=== PATIENT | female | born 1960 | race American Indian/Alaskan Native ===

== ENCOUNTER 2017-08-28 17:51 | Emergency (ER) | payer MEDICAID ==
[2017-08-28] MEDS ORDERED: MOTRIN PO ONE (22:08)
[2017-08-28] MEDS ORDERED: DELTASONE PO ONE (22:08)
[2017-08-28] MEDS ORDERED: ROBITUSSIN PO ONE (22:11)
--- NOTE | 2017-08-28 22:12 | Emergency Department Report ---
Minor Respiratory - HPI Chief Complaint: Upper Respiratory Infection Stated Complaint: FLU LIKE SYMPTOMS Time Seen by Provider: 08/28/17 21:46 Duration: 3 Days Severity: mild Minor Respiratory: Yes Able to Tolerate Fluids, Yes Cough, Yes Sick Contacts ( friend's child), No Rhinorrhea, No Sore Throat, No Ear Pain, No Hemoptysis, No Chest Pain, No Shortness of Breath, No Fever Other History: Patient is a 57-year-old female presents to the ED complaining of fever, yellow productive cough, body aches 3 days. Patient states on Thursday she was a child of a friend who is sick. Patient states she started to feel symptoms about Thursday afternoon. She denies nausea/vomiting/abdominal pain /chest pain. ED Review of Systems ROS: Stated complaint: FLU LIKE SYMPTOMS Other details as noted in HPI Constitutional: denies: chills, fever Eyes: denies: eye pain, eye discharge, vision change ENT: denies: ear pain, throat pain, dental pain, congestion Respiratory: cough. denies: shortness of breath, wheezing Cardiovascular: denies: chest pain, palpitations Endocrine: no symptoms reported Gastrointestinal: denies: abdominal pain, nausea, diarrhea Genitourinary: denies: urgency, dysuria, discharge Musculoskeletal: denies: back pain, joint swelling, arthralgia Skin: denies: rash, lesions Neurological: denies: headache, weakness, paresthesias Psychiatric: denies: anxiety, depression Hematological/Lymphatic: denies: easy bleeding, easy bruising ED Past Medical Hx - Past Medical History Previous Medical History?: No - Surgical History Additional Surgical History: fibroid removal - Social History Smoking Status: Never Smoker Substance Use Type: None - Medications Home Medications: Home Medications Medication Instructions Recorded Confirmed Last Taken Type Benzonatate [Tessalon Perles] 100 mg PO Q8HR #20 capsule 08/28/17 Unknown Rx Ibuprofen [Motrin 800 MG tab] 800 mg PO TID #30 tablet 08/28/17 Unknown Rx guaiFENesin [Robitussin] 200 mg PO TID #80 ml 08/28/17 Unknown Rx Minor Respiratory Exam - Exam General: Vital signs noted. No distress. Alert and acting appropriately. HEENT: Yes Moist Mucous Membranes, No Pharyngeal Erythema, No Pharyngeal Exudates, No Rhinorrhea, No Conjuctival Injection, No Frontal Tenderness, No Maxillary Tenderness Ear: Neither TM Bulge, Neither TM Erythema, Neither EAC Pain, Neither EAC Discharge Neck: Yes Supple, No Adenopathy Lungs: Yes Good Air Exchange, No Wheezes, No Ronchi, No Stridor, No Cough, No Labored Respirations, No Retractions, No Use of Accessory Muscles, No Other Abnormal Lung Sounds Heart: Yes Regular, No Murmur Abdomen: Yes Normal Bowel Sounds, No Tenderness, No Peritoneal Signs Skin: No Rash, No Edema Neurologic: Alert and oriented, no deficits. Musculoskeletal: Unremarkable. ED Course Vital Signs 08/28/17 17:55 Temperature 97.7 F Pulse Rate 84 Respiratory 16 Rate Blood Pressure 119/75 O2 Sat by Pulse 19 L Oximetry ED Medical Decision Making - Medical Decision Making 57-year-old female presents with flulike symptoms. Fever resolved no fever during the ED stay. Chest x-ray ordered, no acute findings Discussed with Pt symptomatic relief with [id number] medications. Discussed continue Tylenol and Motrin as needed for fever and pain. Discussed increase fluids and diet intake. Discussed rest much needed. Discussed daily vitamin C for immune booster. Discussed follow-up with PCP in 3-5 days. Patient' verbally states she understands and will comply the following instructions and follow-up Vital signs stable. Patient is in no acute distress Critical care attestation.: If time is entered above; I have spent that time in minutes in the direct care of this critically ill patient, excluding procedure time. ED Disposition Clinical Impression: Viral syndrome, Bronchitis Disposition: [id number] TO HOME OR SELFCARE Is pt being admited?: No Does the pt Need Aspirin: No Condition: Stable Instructions: Upper Respiratory Infection (ED), Chronic Bronchitis (ED), Viral Syndrome (ED) Additional Instructions: Make sure to follow up with the primary care physician as discussed. Take all your medications as you've been prescribed. If you have any worsening symptoms or develop new symptoms please return to ED immediately. Prescriptions: Benzonatate [Tessalon Perles] 100 mg PO Q8HR #20 capsule guaiFENesin [Robitussin] 200 mg PO TID #80 ml Ibuprofen [Motrin 800 MG tab] 800 mg PO TID #30 tablet Referrals: PRIMARY MD RAMSES [Primary Care Provider] - 3-5 Days CHE FERRER MD [Referring] - 3-5 Days [facility] [Outside] - 3-5 Days [facility] [Outside] - 3-[address] [facility] [Outside] - 3-5 Days Forms: Accompanied Note, Work/School Release Form(ED)
--- NOTE | 2017-08-28 23:00 | XRay Report ---
FINAL REPORT PROCEDURE: XR CHEST ROUTINE 2V TECHNIQUE: PA lateral chest HISTORY: cough/fever COMPARISON: No prior studies are available for comparison. FINDINGS: Heart is top-normal in size. The lungs are clear. No infiltrate or effusion seen. IMPRESSION: No acute infiltrate effusion or pneumothorax
[2017-08-28 23:57] VITALS: BP 120/79
== END 2017-08-28 23:57 | disposition home or self-care (01) ==
LOC: ED 17:51
DX: J40 Bronchitis, not specified as acute or chronic (principal); B34.9 Viral infection, unspecified
CPT/HCPCS: 71046; 99283; J7512